=== PATIENT | male | born 1995 | race Two or more races ===

== ENCOUNTER 2025-10-08 07:35 | Emergency (ER) | payer OTHER ==
[~2025-10-08] VITALS: Ht 175.3 cm; Wt 98.0 kg
[2025-10-08] MEDS ORDERED: ROSUVASTATIN CA10 MG (07:46)
[2025-10-08] MEDS ORDERED: FAMOTIDINE/PF 20 MG/2 ML VIAL IV ONE (08:45)
[2025-10-08] MEDS ORDERED: ONDANSETRON HCL 2 MG/ML VIAL IV ONE (08:45)
[2025-10-08] MEDS ORDERED: 0.9 % SODIUM CHLORIDE 500 ML IV ONE (08:45)
[2025-10-08] MEDS ORDERED: ONDANSETRON HCL 2 MG/ML VIAL ONE (08:54)
[2025-10-08] MEDS ORDERED: MECLIZINE HCL 25 MG TABLET PO ONE (08:54)
[2025-10-08] MEDS ORDERED: FAMOTIDINE/PF 20 MG/2 ML VIAL ONE (08:55)
[2025-10-08 09:00] LABS: BASO % 0.3 % (0.1-1.2); EOS # 0.02 (0.04-0.54); EOS % 0.3 % (0.7-7.0); LYMPH # 0.80 (1.18-3.74); LYMPH % 13.0 % (19.3-53.1); MEAN PLATELET VOLUME 10.50 fl (9.4-12.4); MONO # 0.58 (0.24-0.82); MONO % 9.4 % (4.7-12.5); NEUT # 4.72 (1.56-6.13); NEUT % 76.7 % (34.0-71.1); RED CELL DISTRIBUTION WIDTH 11.9 % (11.6-14.4)
[2025-10-08 09:35] LABS: ALT/SGPT 25.0 U/L (12-78); AST/SGOT 14.0 U/L (15-37); BILIRUBIN TOTAL 0.9 mg/dL (0.3-1.2); BUN CREA RATIO 13.0 (7.0-25.0); CREATININE SERUM 0.98 mg/dL (0.70-1.30); GFR 91.07; GLOBULINA 4.3 G/DL (2.4-3.5); GLUCOSE FASTING 102.0 mg/dL (65-100); OSMOLALITY SERUM 282.0 MOSM/KG (275-295)
[2025-10-08 09:43] LABS: COVID-19 AG NEGATIVE (NEGATIVE)
[2025-10-08] MEDS ORDERED: ZOFRAN8 MG PO (12:36)
[2025-10-08] MEDS ORDERED: PEPCID AC20 MG PO (12:36)
[2025-10-08] MEDS ORDERED: ACETAMINOPHEN500 M1 PO (12:36)
== END 2025-10-08 13:25 | disposition home or self-care (01) ==
LOC: ER 07:35
PROVIDERS: Preventive Medicine Public Health & General Preventive Medicine
DX: A08.4 Viral intestinal infection, unspecified (principal); R50.9 Fever, unspecified; R11.2 Nausea with vomiting, unspecified; A08.8 Other specified intestinal infections; Z20.822 Contact with and (suspected) exposure to COVID-19; Z88.9 Allergy status to unspecified drugs, medicaments and biological substances